=== PATIENT | male | born 1960 | race Caucasian/White ===

== ENCOUNTER 2017-01-16 09:27 | Emergency (ER) | payer MEDICAID, OTHER ==
[~2017-01-16] VITALS: Ht 180.3 cm; Wt 79.5 kg
[~2017-01-16 09:27] MED LIST: ALBU18HF INH; BACL10TA PO; BUPR200T PO; CYCL10TA9 PO; GABA300C PO; OXYC1TAB24 PO; PROC25SU30 RC; RIZA10TA23 PO; VENL75CA95 PO
[2017-01-16 09:32] VITALS: BP 154/66; PULSE 66; RESP 18; O2SAT 98
--- NOTE | 2017-01-16 09:33 | ED.REPORT ---
HPI-Extremity Problem Upper Date of Service Jan 16, 2017 ED Provider: The patient is a 56 year old male with history of hypertension and depression who presents to the emergency department complaining of left shoulder pain. The patient states last night he fell backwards while he was in the shower and his hit left shoulder on the side of the bath tub. He is unable to move his shoulder due to pain. He also reports an abrasion to his right barclay. He did not hit his head or lose consciousness. He denies neck pain, back pain, abdominal pain, lower extremity pain, numbness or weakness. Nursing Notes Stated Complaint: LEFT SHOULDER PAIN/FALL IN SHOWER Chief Complaint: Extremity Trauma Nursing Notes Reviewed: Yes Allergies: Coded Allergies: hydrocodone (Verified Allergy, Severe, Rash N/V, 11/04/15) Scheduled Baclofen (Baclofen) 10 Mg Tablet 10 MG PO TID Bupropion ER (Bupropion ER) 200 Mg Tablet.er 200 MG PO DAILY Gabapentin (Neurontin) 300 Mg Capsule 300 MG PO TID Venlafaxine ER (Venlafaxine ER) 75 Mg Cap.er.24h 75 MG PO DAILY Scheduled PRN Albuterol Sulfate (Ventolin HFA Inhaler) 200 Puff/18 Gm Inhaler 2 PUFF INH Q4 PRN PRN For Wheezing Cyclobenzaprine (Cyclobenzaprine) 10 Mg Tablet 10 MG PO TID PRN PRN unknown Prochlorperazine Maleate (Compazine Suppository) 25 Mg Supp.rect 25 MG RC Q8 PRN PRN For Nausea/Vomiting Rizatriptan ODT (Maxalt [employer]) 10 Mg Tablet 10 MG PO Q2H PRN PRN Headache oxyCODONE-Acetaminophen 5-325 mg (oxyCODONE-Acetaminophen 5-325 mg) 1 Each Tablet 1-2 EACH PO Q4 PRN PRN For Pain General Time Seen by MD: 09:33 Chief Complaint Shoulder injury left Hx Obtained From: Patient Arrived By: Walk-in Onset Occurred: 9 - 12 hours ago Symptom Duration: Since onset Caused by: Fall on ground Location: : Shoulder left Quality: Painful Severity: Current: Moderate Severity: Maximum: Severe Recent Healthcare: No recent doctor visit, No recent hospitalization Similar Sx Previous: No Past Medical History Past Medical History Depression Hypertension Chronic neck pain Past Surgical History Neck surgery Family History Noncontributory Smoking History Current Every Day Smoker Social History Other Social History: Good social support, Local resident Ambulatory Status Independent Review of Systems Review of Systems Note: +abrasion to right barclay Musculoskeletal: Reports: Joint pain, Joint swelling, Denies: Back pain, Neck pain Neurologic: Denies: Focal weakness, Headache, Numbness, Problem walking Complete sys rev & neg: except as marked. Cardiovascular: Denies: Chest pain GI: Denies: Abdominal pain Physical Exam Initial Vital Signs Vital Signs (First) Date Time Temp Pulse Resp B/P Pulse Ox O2 Delivery O2 Flow Rate FiO2 01/16/17 09:32 36.2 66 18 154/66 98 Room Air Initial VS: Reviewed Head / Eyes: Atraumatic, Normocephalic, PERRL ENT: Mucous membranes moist, Conjunctiva normal, No scleral icterus Neck: Supple, Non-tender, Full range of motion Respiratory: Breath sounds normal, Clear to auscultation, No respiratory distress Cardiovascular: Regular rate & rhythm, Heart sounds normal, Intact distal pulses Abdomen / GI: Soft, Non-tender, No guarding, No rebound, No distention Lymphatic: No lymphadenopathy Lower Extremities: Vascular intact, Neuro intact, No swelling, No tenderness Skin: Warm, Dry, No cyanosis Neurologic: Alert, Oriented, Nonfocal Psychiatric: Mood/affect normal, Behavior normal, Normal thought content General/Constitutional: Awake, Alert, Cooperative Upper Extremity / MS: Neurologic intact, Vascular intact Left anterior shoulder fullness. Deformity of the left proximal humerus. Good pulses. Neurologically intact. Lower Extremity / Pelvis / MS: Neurologic intact, Vascular intact Bandage over right anterior barclay Interpretation & Diagnostics X-Ray Interpretation Xray Interpretation: IMPRESSION: Comminuted fracture involving surgical neck of left humerus. Dictated by: Alejandro Navarrete M.D. on 01/16/2017 at 10:14 X-Ray Ordered: Shoulder left Interpretation / Wet Read by: Interpret - Radiologist Re-Eval/Medical Decision Source of Hx: Old records Re-Evaluation/Progress : Time of Eval: 10:40 Re-Evaluation/Progress Note: Rechecked the patient. Discussed plan for discharge and outpatient followup. All questions were addressed. Consultation : Referral / Consult Name: Ovidio Livingston MD Consulted With: Orthopedic Call Returned at: 10:04 Note: Spoke with Dr. Livingston. She will followup with the patient in clinic next week. Counseled Regarding: Diagnosis, Need for follow-up, When/why to return to ED Discharge & Departure Impression: Primary Impression: Humerus fracture Encounter type: initial encounter Humerus Location: surgical neck Fracture type: closed Fracture morphology: unspecified fracture morphology Fracture alignment: nondisplaced Laterality: left Qualified Code: S42.215A - Unspecified nondisplaced fracture of surgical neck of left humerus, initial encounter for closed fracture Disposition: Home Discharge Condition All VS Reviewed: Yes Condition: Stable Patient Instructions: Arm Fracture in Adults (ED) Additional Instructions: Thank you for entrusting us with your care today. Your x-ray does show evidence of a humerus fracture. You will need to followup with an orthopedic early next week. We have given you a referral to Dr. Livingston's office. Call today to schedule the appointment. Wear the splint until you are evaluated by the orthopedist. Take hydrocodone as prescribed for pain and Zofran as needed for nausea. Let your primary prescriber know about the additional pain medication. Please return to the emergency department if you develop increased pain, numbness, weakness, or any other new or concerning symptoms. Referrals: [facility] (PCP) Ovidio Livingston MD Attestation Portions of this note were transcribed by Rachel Henao. I, Dr. Roth personally performed the history, physical exam and medical decision-making; I reviewed and confirmed the accuracy of the information in the transcribed note. Signed by: Yves Freire, 01/16/2017 at 1042. copies to: [facility]; Ovidio Livingston MD, Kirk H MD Jan 16, 2017 09:33 Rachel Henao Jan 16, 2017 09:43
[2017-01-16] MEDS ORDERED: Ondansetron 8 mg ODT Tablet PO ONE (09:40)
[2017-01-16] MEDS ORDERED: oxyCODONE-Acetamin 10-325 mg Tablet PO ONE (09:40)
--- NOTE | 2017-01-16 10:17 | DRSVH ---
PROCEDURE: X-RAY LEFT SHOULDER, MINIMUM TWO VIEWS ([id number]) INDICATIONS: trauma TECHNIQUE: 3 views of the shoulder were acquired. COMPARISON: None. FINDINGS: Bones: Comminuted fracture of the surgical neck of the left humerus. Anatomic alignment at the acromi oclavicular and glenohumeral joint. Acromioclavicular and glenohumeral chronic joint degeneration. Soft tissues: No suspicious soft tissue calcifications. IMPRESSION: Comminuted fracture involving surgical neck of left humerus. Dictated by: Alejandro Navarrete M.D. on 01/16/2017 at 10:14 Approved by: Alejandro Navarrete M.D. on 01/16/2017 at 10:16
[2017-01-16] MEDS ORDERED: HYDR-4003 PO (10:44)
[2017-01-16] MEDS ORDERED: ONDA4TAB9 PO (10:44)
[2017-01-16] MEDS ORDERED: OXYC1TAB24 PO (10:53)
== END 2017-01-16 11:02 | disposition home or self-care (01) ==
LOC: SED 09:27
DX: S42.215A Unspecified nondisplaced fracture of surgical neck of left humerus, initial encounter for closed fracture (principal); W18.2XXA Fall in (into) shower or empty bathtub, initial encounter; Y93.E1 Activity, personal bathing and showering; Y99.8 Other external cause status; Y92.012 Bathroom of single-family (private) house as the place of occurrence of the external cause; I10 Essential (primary) hypertension; F17.200 Nicotine dependence, unspecified, uncomplicated; Z88.5 Allergy status to narcotic agent